=== PATIENT | male | born 1955 | race Hispanic/Latino ===

== ENCOUNTER 2020-02-03 11:09 | Inpatient (IN) | payer MEDICARE ==
[~2020-02-03] VITALS: Ht 180.3 cm; Wt 100.0 kg
[~2020-02-03 11:09] MED LIST: ATOR20TA65 PO; DAPA5TAB PO; FENO145T26 PO; INSU10VI2 SQ; LOSA100T58 PO; MONT10TA26 PO; SITA1TAB6 PO; TAMS-1 PO
[2020-02-03] MEDS ORDERED: ALBUTEROL INHALER 90MCG/INH IH ONE (11:36)
[2020-02-03] MEDS ORDERED: DEXAMETHASONE SOD PHOSPHATE 4 MG/ML 1ML VIAL ONE (11:36)
[2020-02-03] MEDS ORDERED: AZITHROMYCIN 500MG+NS 250ML 250 ML IV ONE (11:36)
[2020-02-03 11:44] LABS: ABG BASE EXCESS 2.4 mmol/L (-2.0-3.0); ABG HCO3 25.8 mmol/L (21.0-28.0); ABG OXYGEN SATURATION 92.6 % (95.0-99.0); ABG PCO2 36 mmHg (35-48)
[2020-02-03 11:45] LABS: BASOPHILS % (AUTO) 0.2 % (0.0-5.0); EOSINOPHILS % (AUTO) 0.2 % (0.0-8.0); HEMATOCRIT 39.4 % (42-54); LYMPHOCYTES % (AUTO) 4.7 % (21.0-51.0); MEAN CORPUSCULAR HEMOGLOBIN 28.5 pg (27.0-33.0); MEAN CORPUSCULAR HGB CONC 32.5 g/dL (32.0-36.0); MEAN CORPUSCULAR VOLUME 87.8 fL (79-99); MONOCYTES % (AUTO) 3.6 % (3.0-13.0); NEUTROPHILS % (AUTO) 90.7 % (40.0-77.0); PLATELET COUNT (AUTO) 166 K/uL (130-400); RED BLOOD CELL COUNT(AUTO) 4.49 MIL/uL (4.50-6.20); RED CELL DISTRIBUTION WIDTH 13.6 % (11.0-15.5); WHITE BLOOD COUNT (AUTO) 6.4 K/uL (4.8-10.8)
[2020-02-03] MEDS ORDERED: ENOXAPARIN SODIUM 100 MG/1 ML SQ ONE (11:49)
[2020-02-03] MEDS ORDERED: CEFTRIAXONE SODIUM 1 GM ONE (11:56)
[2020-02-03 12:02] LABS: INR 0.88 (0.85-1.15); PARTIAL THROMBOPLASTIN TIME 30.5 SEC (26.3-35.5); PROTHROMBIN TIME 9.6 SEC (9.6-11.6)
[2020-02-03 12:12] LABS: ALANINE AMINOTRANSFERASE 41 U/L (12-78); ALBUMIN 2.7 g/dL (3.5-5.0); ASPARTATE AMINOTRANSFERASE 50 U/L (10-37); BILIRUBIN,TOTAL 0.9 mg/dL (0.2-1.0); CARBON DIOXIDE 27 mmol/L (21-32); CHLORIDE 101 mmol/L (101-111); CREATINE KINASE, TOTAL 181 U/L (21-232); GLOMERULAR FILTR. RATE CALC 79 mL/min (>60); GLUCOSE,RANDOM 236 mg/dL (70-105); MYOGLOBIN 130 ng/mL (10-92); POTASSIUM 5.4 mmol/L (3.5-5.1); SODIUM SERUM 136 mmol/L (136-145); TOTAL PROTEIN, SERUM 7.3 g/dL (6.0-8.3); TROPONIN I < 0.04 ng/mL (0.00-0.06); UREA NITROGEN, BLOOD 21 mg/dL (7-18)
[2020-02-03 12:36] LABS: APPEARANCE,URINE Clear (CLEAR); BILIRUBIN,URINE Negative (NEGATIVE); COLOR,URINE Yellow (YELLOW); GLUCOSE, URINE (UA) 250 mg/dL (NEGATIVE); KETONES,URINE Trace mg/dL (NEGATIVE); LEUKOCYTE ESTERASE ,URINE Negative (NEGATIVE); NITRATE,URINE Negative (NEGATIVE); OCCULT BLOOD,URINE Negative (NEGATIVE); PROTEIN,URINE POS 1+ mg/dL (NEGATIVE)
[2020-02-03 12:47] LABS: BACTERIA,URINE Rare /HPF (None Seen); MUCUS,URINE Few LPF (None Seen); RBC,URINE 0-1 /HPF (0-1); SQUAMOUS EPITHELIAL CELL,UR Rare /HPF (0-2); WBC,URINE 0-1 /HPF (0-1)
[2020-02-03] MEDS: CEFTRIAXONE SODIUM 1 GM IVP SCH (13:30)
[2020-02-03] MEDS: ERGOCALCIFEROL (VITAMIN D2) 50,000 UNIT CAPSULE PO SCH (13:30)
[2020-02-03] MEDS ORDERED: PHARMACY COMMUNICATION***REMDESIVIR ORDER MISC SCH (13:30)
[2020-02-03] MEDS: INSULIN HUMULIN R 100 UNIT/ML 3ML SQ SCH ×2 (16:30→20:43)
[2020-02-03] MEDS ORDERED: LEVO5TAB13 PO (16:44)
[2020-02-03] MEDS ORDERED: REMDESIVIR (EUA) 520 200 MG in SODIUM CHLORIDE 0.9% 250 ML IV SCH (18:15)
[2020-02-03] MEDS ORDERED: COMPOUND IV REFRIGERATED 1 EACH IVSOLN MISC PRN (18:15)
[2020-02-03 19:00] VITALS: BP 132/66
[2020-02-03] MEDS: FAMOTIDINE 20MG TAB 20 MG TAB PO SCH (19:32)
[2020-02-03] MEDS: DOXYCYCLINE HYCLATE 100 MG TABLET PO SCH (19:32)
[2020-02-04] VITALS: BP 134/72
[2020-02-04] MEDS: CEFTRIAXONE SODIUM 1 GM IVP SCH ×2 (01:34→13:32)
[2020-02-04 04:00] VITALS: BP 123/95
[2020-02-04] MEDS: PHARMACY COMMUNICATION MISC SCH (04:14)
[2020-02-04 05:13] LABS: HEMATOCRIT 32.9 % (42-54); LYMPHOCYTES % (AUTO) 5.3 % (21.0-51.0); MEAN CORPUSCULAR HEMOGLOBIN 28.2 pg (27.0-33.0); MEAN CORPUSCULAR HGB CONC 32.5 g/dL (32.0-36.0); MEAN CORPUSCULAR VOLUME 86.6 fL (79-99); MONOCYTES % (AUTO) 5.1 % (3.0-13.0); NEUTROPHILS % (AUTO) 88.8 % (40.0-77.0); PLATELET COUNT (AUTO) 189 K/uL (130-400); RED CELL DISTRIBUTION WIDTH 13.3 % (11.0-15.5); WHITE BLOOD COUNT (AUTO) 5.3 K/uL (4.8-10.8)
[2020-02-04] MEDS: INSULIN HUMULIN R 100 UNIT/ML 3ML SQ SCH ×4 (05:52→20:34)
[2020-02-04 06:10] LABS: ALANINE AMINOTRANSFERASE 39 U/L (12-78); ALBUMIN 2.3 g/dL (3.5-5.0); ASPARTATE AMINOTRANSFERASE 34 U/L (10-37); BILIRUBIN,TOTAL 0.4 mg/dL (0.2-1.0); CARBON DIOXIDE 25 mmol/L (21-32); CHLORIDE 103 mmol/L (101-111); CREATININE 0.8 mg/dL (0.5-1.5); GLOMERULAR FILTR. RATE CALC 103 mL/min (>60); GLUCOSE,RANDOM 271 mg/dL (70-105); LACTATE DEHYDROGENASE 364 U/L (81-234); SODIUM SERUM 139 mmol/L (136-145); TOTAL PROTEIN, SERUM 6.1 g/dL (6.0-8.3); UREA NITROGEN, BLOOD 20 mg/dL (7-18)
[2020-02-04 07:45] VITALS: BP 105/68
[2020-02-04] MEDS ORDERED: IOHEXOL-350 75 ML VIAL IV ONE (08:16)
[2020-02-04] MEDS: ENOXAPARIN SODIUM 40 MG/0.4 ML SYRINGE SQ SCH (08:45)
--- NOTE | 2020-02-04 08:53 | NUR ---
RAPID COVID TEST COLLECTED AND SENT TO LAB, PERMIT FOR CT OF CHEST PE PROTOCOL SIGNED WELL PERMIT FOR CONVALESCANT PLASMA; I HAVE SPOKEN TO OLENA COELLO TO ENTER THE PT IN THE PLASMA PROGRAM TO SEE IF HE QUALIFIES.
[2020-02-04] MEDS: TAMSULOSIN HCL 0.4 MG CAP.ER.24H PO SCH (10:20)
[2020-02-04] MEDS: FAMOTIDINE 20MG TAB 20 MG TAB PO SCH ×2 (10:20→20:32)
[2020-02-04] MEDS: ATORVASTATIN CALCIUM 20 MG TABLET PO SCH (10:20)
[2020-02-04] MEDS: DEXAMETHASONE 4 MG TAB PO SCH (10:20)
[2020-02-04] MEDS: ASCORBIC ACID 500 MG TAB PO SCH (10:20)
[2020-02-04] MEDS: DOXYCYCLINE HYCLATE 100 MG TABLET PO SCH ×2 (10:20→20:32)
[2020-02-04] MEDS: ZINC SULFATE 220 CAPSULE PO SCH (10:20)
[2020-02-04] MEDS: LOSARTAN 100 MG TABLET PO SCH (10:20)
[2020-02-04 11:00] VITALS: BP 157/82
--- NOTE | 2020-02-04 12:18 | NUR ---
RD NOTIFICATION Pt admitted chest pain, Positive COVID-19 prior to admit. 60gm [address] in [address]. No report of GI distress. BMI 30.6.. BG 176, Alb 2.3. Zinc, Vitamin C supplementation in place. Recommend continue 60gm CCD Recommend 60mL ProMod QD RD to continue to monitor. Please notify as additional nutrition concerns arise. Thank you.
[2020-02-04] MEDS ORDERED: ACETAMINOPHEN 325 MG TAB ONE (13:26)
[2020-02-04] MEDS: ERGOCALCIFEROL (VITAMIN D2) 50,000 UNIT CAPSULE PO SCH (13:32)
[2020-02-04 16:00] VITALS: BP 125/65
[2020-02-04] MEDS ORDERED: SODIUM CHLORIDE 0.9% 250 ML IV ONE (17:02)
[2020-02-04] MEDS: REMDESIVIR (EUA) 520 100 MG in SODIUM CHLORIDE 0.9% 250 ML IV SCH (17:06)
[2020-02-04 19:00] VITALS: BP 107/59
[2020-02-04] MEDS ORDERED: INSULIN HUMULIN R 100 UNIT/ML 3ML ONE (20:27)
[2020-02-04] MEDS ORDERED: DEXTROSE 50%-WATER 50 ML DISP.SYRIN IV PRN (20:30)
[2020-02-04] MEDS ORDERED: GLUCAGON 1MG KIT 1 MG ML IM PRN (20:30)
[2020-02-04] MEDS: HYDROMORPHONE HCL 2 MG/ML VIAL IVP PRN (23:43)
[2020-02-05] VITALS (7 sets, daily range): BP systolic 115–150; BP diastolic 55–87
[2020-02-05] MEDS: CEFTRIAXONE SODIUM 1 GM IVP SCH ×2 (02:07→12:07)
[2020-02-05] MEDS: HYDROMORPHONE HCL 2 MG/ML VIAL IVP PRN ×2 (02:07→04:17)
[2020-02-05 04:12] LABS: EOSINOPHILS % (AUTO) 0.2 % (0.0-8.0); HEMATOCRIT 32.6 % (42-54); LYMPHOCYTES % (AUTO) 7.5 % (21.0-51.0); MEAN CORPUSCULAR HEMOGLOBIN 28.1 pg (27.0-33.0); MEAN CORPUSCULAR HGB CONC 32.5 g/dL (32.0-36.0); MEAN CORPUSCULAR VOLUME 86.5 fL (79-99); MONOCYTES % (AUTO) 4.9 % (3.0-13.0); NEUTROPHILS % (AUTO) 86.3 % (40.0-77.0); PLATELET COUNT (AUTO) 198 K/uL (130-400); RED BLOOD CELL COUNT(AUTO) 3.77 MIL/uL (4.50-6.20); RED CELL DISTRIBUTION WIDTH 13.2 % (11.0-15.5); WHITE BLOOD COUNT (AUTO) 4.7 K/uL (4.8-10.8)
[2020-02-05] MEDS: PHARMACY COMMUNICATION MISC SCH (04:18)
[2020-02-05 04:39] LABS: ALANINE AMINOTRANSFERASE 33 U/L (12-78); ALBUMIN 2.2 g/dL (3.5-5.0); ASPARTATE AMINOTRANSFERASE 20 U/L (10-37); BILIRUBIN,TOTAL 0.3 mg/dL (0.2-1.0); CARBON DIOXIDE 28 mmol/L (21-32); CHLORIDE 104 mmol/L (101-111); CREATININE 0.8 mg/dL (0.5-1.5); GLOMERULAR FILTR. RATE CALC 103 mL/min (>60); GLUCOSE,RANDOM 230 mg/dL (70-105); LACTATE DEHYDROGENASE 290 U/L (81-234); SODIUM SERUM 140 mmol/L (136-145); UREA NITROGEN, BLOOD 24 mg/dL (7-18)
[2020-02-05] MEDS: ASCORBIC ACID 500 MG TAB PO SCH (08:43)
[2020-02-05] MEDS: ENOXAPARIN SODIUM 40 MG/0.4 ML SYRINGE SQ SCH (08:44)
[2020-02-05] MEDS: ZINC SULFATE 220 CAPSULE PO SCH (08:44)
[2020-02-05] MEDS: LOSARTAN 100 MG TABLET PO SCH (08:44)
[2020-02-05] MEDS: ATORVASTATIN CALCIUM 20 MG TABLET PO SCH (08:44)
[2020-02-05] MEDS: DOXYCYCLINE HYCLATE 100 MG TABLET PO SCH ×2 (08:44→21:45)
[2020-02-05] MEDS: DEXAMETHASONE 4 MG TAB PO SCH (08:44)
[2020-02-05] MEDS: FAMOTIDINE 20MG TAB 20 MG TAB PO SCH ×2 (08:44→21:45)
[2020-02-05] MEDS: TAMSULOSIN HCL 0.4 MG CAP.ER.24H PO SCH (08:45)
[2020-02-05] MEDS: INSULIN HUMULIN 70/30 100 UNIT/ML 3ML SQ SCH ×3 (08:48→16:51)
[2020-02-05] MEDS: INSULIN HUMULIN R 100 UNIT/ML 3ML SQ SCH ×4 (08:48→21:45)
--- NOTE | 2020-02-05 11:58 | NUR ---
DC PLAN CALLED DAUGHTER ON FACE SHEET SAID NOT AVAILABLE. Addendum: 02/05/20 at 1200 by KRISTIAN MORALES RN CM Amended: Links added.
[2020-02-05] MEDS: ERGOCALCIFEROL (VITAMIN D2) 50,000 UNIT CAPSULE PO SCH (12:10)
--- NOTE | 2020-02-05 12:40 | NUR ---
DCP CM unable to meet with pt, called daughter on facesheet, spoke to Charisma De La Paz , discussed dc plans. Pt is independent prior to admission, lives at home alone, daughter lives 30minutes from pt. Denies any equipments/services. Pt has [address] in front of his house. Feels safe to go back home, daughter able to assist with transportation and needs as necessary. DC plan to home once stable. CM to cont to follow up. Addendum: 02/05/20 at 1242 by HARITHA WOOTEN LVN CM Amended: Links added.
[2020-02-05] MEDS: REMDESIVIR (EUA) 520 100 MG in SODIUM CHLORIDE 0.9% 250 ML IV SCH (17:43)
--- NOTE | 2020-02-05 23:51 | NUR ---
Patient blood sugar is 439. 20 units of insulin given and hospitalist informed as ordered. First unit of FFP started per protocol. No transfusion reaction observed. Patient is in stable condition. Will continue to monitor.
[2020-02-06] MEDS ORDERED: INSULIN GLARGINE 100 UNITS/ML 10 ML VIAL SQ SCH
[2020-02-06] MEDS: CEFTRIAXONE SODIUM 1 GM IVP SCH ×2 (02:12→11:36)
--- NOTE | 2020-02-06 03:28 | NUR ---
Second unit of FFP completed, with pt in stable condition. No s/s of transfusion reaction observed. Patient is now resting comfortably
[2020-02-06 03:48] VITALS: BP 153/77
[2020-02-06 05:01] LABS: EOSINOPHILS % (AUTO) 0.2 % (0.0-8.0); MEAN CORPUSCULAR HEMOGLOBIN 27.7 pg (27.0-33.0); MEAN CORPUSCULAR HGB CONC 32.2 g/dL (32.0-36.0); MONOCYTES % (AUTO) 4.6 % (3.0-13.0); NEUTROPHILS % (AUTO) 85.8 % (40.0-77.0); PLATELET COUNT (AUTO) 213 K/uL (130-400); RED BLOOD CELL COUNT(AUTO) 3.72 MIL/uL (4.50-6.20); RED CELL DISTRIBUTION WIDTH 13.2 % (11.0-15.5); WHITE BLOOD COUNT (AUTO) 5.9 K/uL (4.8-10.8)
[2020-02-06 05:35] LABS: ALANINE AMINOTRANSFERASE 47 U/L (12-78); ALBUMIN 2.4 g/dL (3.5-5.0); ASPARTATE AMINOTRANSFERASE 31 U/L (10-37); BILIRUBIN,TOTAL 0.3 mg/dL (0.2-1.0); CARBON DIOXIDE 29 mmol/L (21-32); CHLORIDE 106 mmol/L (101-111); CREATININE 0.8 mg/dL (0.5-1.5); GLOMERULAR FILTR. RATE CALC 103 mL/min (>60); GLUCOSE,RANDOM 149 mg/dL (70-105); LACTATE DEHYDROGENASE 295 U/L (81-234); POTASSIUM 3.8 mmol/L (3.5-5.1); SODIUM SERUM 143 mmol/L (136-145); TOTAL PROTEIN, SERUM 6.4 g/dL (6.0-8.3); UREA NITROGEN, BLOOD 24 mg/dL (7-18)
[2020-02-06] MEDS: PHARMACY COMMUNICATION MISC SCH (06:00)
[2020-02-06] MEDS: INSULIN HUMULIN R 100 UNIT/ML 3ML SQ SCH ×5 (07:23→20:35)
[2020-02-06] MEDS: ASCORBIC ACID 500 MG TAB PO SCH (08:00)
[2020-02-06] MEDS: INSULIN HUMULIN 70/30 100 UNIT/ML 3ML SQ SCH ×2 (08:00→11:47)
[2020-02-06] MEDS: ZINC SULFATE 220 CAPSULE PO SCH (08:01)
[2020-02-06] MEDS: FAMOTIDINE 20MG TAB 20 MG TAB PO SCH ×2 (08:01→20:33)
[2020-02-06] MEDS: DOXYCYCLINE HYCLATE 100 MG TABLET PO SCH ×2 (08:01→20:33)
[2020-02-06] MEDS: LOSARTAN 100 MG TABLET PO SCH (08:02)
[2020-02-06] MEDS: DEXAMETHASONE SOD PHOSPHATE 4 MG/ML 1ML VIAL IV SCH (08:02)
[2020-02-06] MEDS: ATORVASTATIN CALCIUM 20 MG TABLET PO SCH (08:02)
[2020-02-06] MEDS: TAMSULOSIN HCL 0.4 MG CAP.ER.24H PO SCH (08:02)
[2020-02-06] MEDS: ENOXAPARIN SODIUM 40 MG/0.4 ML SYRINGE SQ SCH (08:03)
[2020-02-06 08:41] VITALS: BP 150/87
[2020-02-06 11:49] VITALS: BP 159/78
[2020-02-06] MEDS ORDERED: INSULIN HUMULIN R 100 UNIT/ML 3ML SQ SCH ×2 (12:00)
[2020-02-06 16:30] VITALS: BP 122/71
[2020-02-06] MEDS: REMDESIVIR (EUA) 520 100 MG in SODIUM CHLORIDE 0.9% 250 ML IV SCH (18:34)
[2020-02-06] MEDS: INSULIN GLARGINE 100 UNITS/ML 10 ML VIAL SQ SCH (20:34)
[2020-02-06 20:39] VITALS: BP 173/77
[2020-02-06 23:47] VITALS: BP 170/85
[2020-02-07] MEDS: CEFTRIAXONE SODIUM 1 GM IVP SCH ×2 (01:03→14:39)
[2020-02-07 04:02] VITALS: BP 141/76
[2020-02-07 05:37] LABS: BASOPHILS % (AUTO) 0.3 % (0.0-5.0); EOSINOPHILS % (AUTO) 0.4 % (0.0-8.0); HEMATOCRIT 33.2 % (42-54); MEAN CORPUSCULAR HEMOGLOBIN 27.8 pg (27.0-33.0); MEAN CORPUSCULAR HGB CONC 32.5 g/dL (32.0-36.0); MEAN CORPUSCULAR VOLUME 85.6 fL (79-99); NEUTROPHILS % (AUTO) 83.8 % (40.0-77.0); PLATELET COUNT (AUTO) 238 K/uL (130-400); RED BLOOD CELL COUNT(AUTO) 3.88 MIL/uL (4.50-6.20); RED CELL DISTRIBUTION WIDTH 13.1 % (11.0-15.5); WHITE BLOOD COUNT (AUTO) 7.7 K/uL (4.8-10.8)
[2020-02-07] MEDS: PHARMACY COMMUNICATION MISC SCH (06:00)
[2020-02-07 06:01] LABS: ALANINE AMINOTRANSFERASE 53 U/L (12-78); ALBUMIN 2.4 g/dL (3.5-5.0); ASPARTATE AMINOTRANSFERASE 33 U/L (10-37); BILIRUBIN,TOTAL 0.3 mg/dL (0.2-1.0); CARBON DIOXIDE 27 mmol/L (21-32); CHLORIDE 104 mmol/L (101-111); CREATININE 0.7 mg/dL (0.5-1.5); GLOMERULAR FILTR. RATE CALC 120 mL/min (>60); GLUCOSE,RANDOM 246 mg/dL (70-105); LACTATE DEHYDROGENASE 310 U/L (81-234); POTASSIUM 3.6 mmol/L (3.5-5.1); SODIUM SERUM 141 mmol/L (136-145); TOTAL PROTEIN, SERUM 6.1 g/dL (6.0-8.3); UREA NITROGEN, BLOOD 22 mg/dL (7-18)
[2020-02-07] MEDS: INSULIN HUMULIN R 100 UNIT/ML 3ML SQ SCH ×7 (06:15→21:50)
[2020-02-07] MEDS: ENOXAPARIN SODIUM 40 MG/0.4 ML SYRINGE SQ SCH (08:20)
[2020-02-07] MEDS: ZINC SULFATE 220 CAPSULE PO SCH (08:20)
[2020-02-07] MEDS: DOXYCYCLINE HYCLATE 100 MG TABLET PO SCH ×2 (08:20→20:57)
[2020-02-07] MEDS: ATORVASTATIN CALCIUM 20 MG TABLET PO SCH (08:20)
[2020-02-07] MEDS: DEXAMETHASONE SOD PHOSPHATE 4 MG/ML 1ML VIAL IV SCH (08:20)
[2020-02-07] MEDS: FAMOTIDINE 20MG TAB 20 MG TAB PO SCH ×2 (08:20→20:57)
[2020-02-07] MEDS: TAMSULOSIN HCL 0.4 MG CAP.ER.24H PO SCH (08:20)
[2020-02-07] MEDS: LOSARTAN 100 MG TABLET PO SCH (08:20)
[2020-02-07] MEDS: ASCORBIC ACID 500 MG TAB PO SCH (08:20)
[2020-02-07 09:11] VITALS: BP 150/68
[2020-02-07 11:47] VITALS: BP 123/64
[2020-02-07 16:26] VITALS: BP 110/80
[2020-02-07] MEDS: REMDESIVIR (EUA) 520 100 MG in SODIUM CHLORIDE 0.9% 250 ML IV SCH (17:07)
[2020-02-07 19:00] VITALS: BP 142/69
[2020-02-07] MEDS: INSULIN GLARGINE 100 UNITS/ML 10 ML VIAL SQ SCH (21:50)
[2020-02-07 23:50] VITALS: BP 168/98
[2020-02-08 00:40] VITALS: BP 166/95
[2020-02-08] MEDS: CEFTRIAXONE SODIUM 1 GM IVP SCH ×2 (01:27→12:49)
[2020-02-08] MEDS ORDERED: HYDRALAZINE HCL 20 MG/ML VIAL IV PRN (01:30)
[2020-02-08 03:47] VITALS: BP 147/73
[2020-02-08 06:24] LABS: BASOPHILS % (AUTO) 0.4 % (0.0-5.0); EOSINOPHILS % (AUTO) 0.4 % (0.0-8.0); HEMATOCRIT 35.5 % (42-54); LYMPHOCYTES % (AUTO) 4.9 % (21.0-51.0); MEAN CORPUSCULAR HEMOGLOBIN 28.4 pg (27.0-33.0); MEAN CORPUSCULAR HGB CONC 33.2 g/dL (32.0-36.0); MEAN CORPUSCULAR VOLUME 85.5 fL (79-99); NEUTROPHILS % (AUTO) 84.7 % (40.0-77.0); PLATELET COUNT (AUTO) 244 K/uL (130-400); RED BLOOD CELL COUNT(AUTO) 4.15 MIL/uL (4.50-6.20); RED CELL DISTRIBUTION WIDTH 13.1 % (11.0-15.5); WHITE BLOOD COUNT (AUTO) 11.4 K/uL (4.8-10.8)
[2020-02-08] MEDS: INSULIN HUMULIN R 100 UNIT/ML 3ML SQ SCH ×7 (06:31→21:23)
[2020-02-08 06:52] LABS: ALANINE AMINOTRANSFERASE 49 U/L (12-78); ALBUMIN 2.5 g/dL (3.5-5.0); ASPARTATE AMINOTRANSFERASE 26 U/L (10-37); BILIRUBIN,TOTAL 0.4 mg/dL (0.2-1.0); CARBON DIOXIDE 30 mmol/L (21-32); CHLORIDE 108 mmol/L (101-111); GLOMERULAR FILTR. RATE CALC 79 mL/min (>60); GLUCOSE,RANDOM 291 mg/dL (70-105); LACTATE DEHYDROGENASE 299 U/L (81-234); POTASSIUM 4.1 mmol/L (3.5-5.1); SODIUM SERUM 144 mmol/L (136-145); TOTAL PROTEIN, SERUM 6.2 g/dL (6.0-8.3); UREA NITROGEN, BLOOD 23 mg/dL (7-18)
[2020-02-08 07:25] VITALS: BP 158/79
[2020-02-08 10:30] VITALS: BP 128/67
[2020-02-08] MEDS: DOXYCYCLINE HYCLATE 100 MG TABLET PO SCH ×2 (10:48→21:06)
[2020-02-08] MEDS: FAMOTIDINE 20MG TAB 20 MG TAB PO SCH ×2 (10:48→21:14)
[2020-02-08] MEDS: ZINC SULFATE 220 CAPSULE PO SCH (10:49)
[2020-02-08] MEDS: ASCORBIC ACID 500 MG TAB PO SCH (10:49)
[2020-02-08] MEDS: ATORVASTATIN CALCIUM 20 MG TABLET PO SCH (10:49)
[2020-02-08] MEDS: TAMSULOSIN HCL 0.4 MG CAP.ER.24H PO SCH (10:49)
[2020-02-08] MEDS: LOSARTAN 100 MG TABLET PO SCH (10:49)
[2020-02-08] MEDS: DEXAMETHASONE SOD PHOSPHATE 4 MG/ML 1ML VIAL IV SCH (10:50)
[2020-02-08] MEDS: ENOXAPARIN SODIUM 40 MG/0.4 ML SYRINGE SQ SCH (10:50)
[2020-02-08 15:54] VITALS: BP 149/78
[2020-02-08 16:35] LABS: ABG BASE EXCESS -1.3 mmol/L (-2.0-3.0); ABG HCO3 21.6 mmol/L (21.0-28.0); ABG OXYGEN SATURATION 87.1 % (95.0-99.0); ABG PCO2 31 mmHg (35-48)
--- NOTE | 2020-02-08 17:08 | NUR ---
CM NOTE/[facility]XYGEN NEW ORDER FOR HOME OXYGEN REFERRAL. PATIENT QUALIFIED WITH OXYGEN SATURATION OF 84%, SEE RT NOTES. DAUGHTER, SADI CERNA, CALLED AND MADE AWARE OF REFERRAL WELL LENDING OUR CONCENTRATOR AND PORTABLE TANK UNTIL DME PROCESS HOME OXYGEN REFERRAL. PER DAUGHTER, OK WITH ANY DME IN NETWORK. [facility] FAXED REFERRAL. PER MD, WILL DC HOME TOMORROW 02/09/20 WITH ELIQUIS AND STEROID RX. DAUGHTER, SADI CERNA, INFORMED. PRIMARY NURSE, JORGE A RN, MADE AWARE.
[2020-02-08 19:00] VITALS: BP 169/74
[2020-02-08] MEDS: INSULIN GLARGINE 100 UNITS/ML 10 ML VIAL SQ SCH (21:24)
[2020-02-09] VITALS: BP 167/75
[2020-02-09] MEDS: CEFTRIAXONE SODIUM 1 GM IVP SCH ×2 (01:54→12:26)
[2020-02-09 04:00] VITALS: BP 140/72
[2020-02-09 04:03] LABS: BASOPHILS % (AUTO) 0.1 % (0.0-5.0); EOSINOPHILS % (AUTO) 0.4 % (0.0-8.0); HEMATOCRIT 33.5 % (42-54); LYMPHOCYTES % (AUTO) 5.1 % (21.0-51.0); MEAN CORPUSCULAR HGB CONC 33.1 g/dL (32.0-36.0); MEAN CORPUSCULAR VOLUME 84.6 fL (79-99); MONOCYTES % (AUTO) 3.7 % (3.0-13.0); NEUTROPHILS % (AUTO) 86.4 % (40.0-77.0); PLATELET COUNT (AUTO) 228 K/uL (130-400); RED BLOOD CELL COUNT(AUTO) 3.96 MIL/uL (4.50-6.20); RED CELL DISTRIBUTION WIDTH 13.2 % (11.0-15.5)
[2020-02-09 04:14] LABS: ALANINE AMINOTRANSFERASE 57 U/L (12-78); ALBUMIN 2.4 g/dL (3.5-5.0); ASPARTATE AMINOTRANSFERASE 30 U/L (10-37); BILIRUBIN,TOTAL 0.5 mg/dL (0.2-1.0); CARBON DIOXIDE 28 mmol/L (21-32); CHLORIDE 106 mmol/L (101-111); CREATININE 0.8 mg/dL (0.5-1.5); GLOMERULAR FILTR. RATE CALC 103 mL/min (>60); GLUCOSE,RANDOM 237 mg/dL (70-105); LACTATE DEHYDROGENASE 251 U/L (81-234); POTASSIUM 3.6 mmol/L (3.5-5.1); SODIUM SERUM 141 mmol/L (136-145); UREA NITROGEN, BLOOD 22 mg/dL (7-18)
[2020-02-09] MEDS: INSULIN HUMULIN R 100 UNIT/ML 3ML SQ SCH ×4 (07:10→12:25)
[2020-02-09 07:32] VITALS: BP 109/70
[2020-02-09] MEDS: LOSARTAN 100 MG TABLET PO SCH (10:11)
[2020-02-09] MEDS: ATORVASTATIN CALCIUM 20 MG TABLET PO SCH (10:11)
[2020-02-09] MEDS: DOXYCYCLINE HYCLATE 100 MG TABLET PO SCH (10:11)
[2020-02-09] MEDS: FAMOTIDINE 20MG TAB 20 MG TAB PO SCH (10:11)
[2020-02-09] MEDS: ZINC SULFATE 220 CAPSULE PO SCH (10:11)
[2020-02-09] MEDS: ASCORBIC ACID 500 MG TAB PO SCH (10:11)
[2020-02-09] MEDS: TAMSULOSIN HCL 0.4 MG CAP.ER.24H PO SCH (10:11)
[2020-02-09] MEDS: DEXAMETHASONE SOD PHOSPHATE 4 MG/ML 1ML VIAL IV SCH (10:12)
[2020-02-09] MEDS: ENOXAPARIN SODIUM 40 MG/0.4 ML SYRINGE SQ SCH (10:13)
[2020-02-09] MEDS ORDERED: DEXA6TAB PO (10:22)
[2020-02-09] MEDS ORDERED: AZIT500T2 PO (10:22)
[2020-02-09 10:45] VITALS: BP 148/79
--- NOTE | 2020-02-09 13:49 | NUR ---
CM NOTE/[facility] 02 CONCENTRATOR AND TANK PATIENT TO DC HOME TODAY, PENDING [facility]IENT PROCESS AND DELIVERY OF OXYGEN CONCENTRATOR AND TANK. HOSPITAL TO LEND A OXYGEN CONCENTRATOR AND PORTABLE O2 TANK FOR HOME USE AND TO RETURN WHEN NOT IN USE, PORTABLE O2 TANK TO BE BROUGHT BACK WHEN PATIENT GETS DROPPED OFF AT HOME. JORGE A JONES, MADE AWARE OF CONCENTRATOR AND TANK IN NURSING POD TO GIVE TO PATIENT, VERBALIZED UNDERSTANDING. NURSE TO INSTRUCT PATIENT ON CONCENTRATOR USE.
--- NOTE | 2020-02-09 16:20 | NUR ---
Discharge Patient discharged with home 02 provided by his insurance [id number], he is [id number] and in no distress, Tele box removed and INT removed.
== END 2020-02-09 16:36 | disposition home or self-care (01) | DRG 177 ==
LOC: EDH 11:09 → EDHIP 13:24 → 3AH 15:39
PROVIDERS: ADMIT Internal Medicine; ATTEND Internal Medicine
PROC: XW13325 Transfusion of Convalescent Plasma (Nonautologous) into Peripheral Vein, Percutaneous Approach, New Technology Group 5 (ICD-10-PCS; principal; 2020-02-03)
PROC: XW033E5 Introduction of Remdesivir Anti-infective into Peripheral Vein, Percutaneous Approach, New Technology Group 5 (ICD-10-PCS; 2020-02-03)
DX: U07.1 COVID-19 (principal); J12.89 Other viral pneumonia; J96.01 Acute respiratory failure with hypoxia; E87.3 Alkalosis; E11.9 Type 2 diabetes mellitus without complications; D72.810 Lymphocytopenia; E78.5 Hyperlipidemia, unspecified; R07.9 Chest pain, unspecified; E87.5 Hyperkalemia; I10 Essential (primary) hypertension; N40.0 Benign prostatic hyperplasia without lower urinary tract symptoms; Z79.4 Long term (current) use of insulin; Z90.49 Acquired absence of other specified parts of digestive tract; Z87.01 Personal history of pneumonia (recurrent); Z83.3 Family history of diabetes mellitus; Z82.49 Family history of ischemic heart disease and other diseases of the circulatory system
CPT/HCPCS: 36415; 36430; 36600; 71045; 71275; 80053; 81001; 82435; 82550; 82728; 82803; 82947; 82948; 83605; 83615; 83874; 84132; 84145; 84295; 84484; 85018; 85025; 85378; 85610; 85730; 86140; 86850; 86900; 86901; 86927; 87040; 87088; 87426; 93005; 94760; G0378; J0360; J0456; J0696; J1100; J1170; J1650; J1815; J7050; J8540; Q9967; U0003

== ENCOUNTER 2020-11-01 18:22 | Emergency (ER) | payer MEDICARE ==
[~2020-11-01 18:22] MED LIST changes: +AZIT500T2 PO; -DAPA5TAB PO; -FENO145T26 PO; +LEVO5TAB13 PO; -MONT10TA26 PO; +MONT10TA32 PO
[2020-11-01] MEDS ORDERED: CEFEPIME HCL 1 GM VIAL ONE ×2 (21:40→21:48)
[2020-11-01] MEDS ORDERED: VANCOMYCIN 1GM+NS 250ML 250 ML IV ONE (21:40)
[2020-11-01] MEDS ORDERED: SODIUM CHLORIDE 0.9% 250 ML IV ONE (21:41)
[2020-11-01] MEDS ORDERED: SODIUM CHLORIDE 0.9% 50 ML IV ONE (21:41)
[2020-11-01 21:48] LABS: BASOPHILS % (AUTO) 0.7 % (0.0-5.0); EOSINOPHILS % (AUTO) 3.5 % (0.0-8.0); LYMPHOCYTES % (AUTO) 10.3 % (21.0-51.0); MEAN CORPUSCULAR HEMOGLOBIN 28.6 pg (27.0-33.0); MEAN CORPUSCULAR HGB CONC 33.2 g/dL (32.0-36.0); MEAN CORPUSCULAR VOLUME 86.4 fL (79-99); MONOCYTES % (AUTO) 7.5 % (3.0-13.0); NEUTROPHILS % (AUTO) 77.1 % (40.0-77.0); PLATELET COUNT (AUTO) 133 K/uL (130-400); RED CELL DISTRIBUTION WIDTH 14.9 % (11.0-15.5); WHITE BLOOD COUNT (AUTO) 5.8 K/uL (4.8-10.8)
[2020-11-01 22:01] LABS: PROTHROMBIN TIME 10.9 SEC (9.6-11.6)
[2020-11-01 22:03] LABS: PARTIAL THROMBOPLASTIN TIME 26.2 SEC (26.3-35.5)
[2020-11-01 22:04] LABS: CARBON DIOXIDE 26 mmol/L (21-32); CHLORIDE 104 mmol/L (101-111); CREATININE 1.1 mg/dL (0.5-1.5); GLOMERULAR FILTR. RATE CALC 71 mL/min (>60); GLUCOSE,RANDOM 216 mg/dL (70-105); POTASSIUM 3.7 mmol/L (3.5-5.1); SODIUM SERUM 140 mmol/L (136-145); UREA NITROGEN, BLOOD 24 mg/dL (7-18)
[2020-11-01 22:05] LABS: ALANINE AMINOTRANSFERASE 46 U/L (12-78); ALBUMIN 3.7 g/dL (3.5-5.0); ASPARTATE AMINOTRANSFERASE 28 U/L (10-37); BILIRUBIN,TOTAL 0.3 mg/dL (0.2-1.0); TOTAL PROTEIN, SERUM 6.7 g/dL (6.0-8.3)
[2020-11-01 22:05] LABS: APPEARANCE,URINE Clear (CLEAR); BILIRUBIN,URINE Negative (NEGATIVE); COLOR,URINE Yellow (YELLOW); GLUCOSE, URINE (UA) >=1000 mg/dL (NEGATIVE); KETONES,URINE Negative (NEGATIVE); LEUKOCYTE ESTERASE ,URINE Negative (NEGATIVE); NITRATE,URINE Negative (NEGATIVE); OCCULT BLOOD,URINE Negative (NEGATIVE); PROTEIN,URINE Negative (NEGATIVE); UROBILINOGEN,URINE 0.2 mg/dL (0.2-1.0)
[2020-11-01 22:06] LABS: CRP QUANTITATIVE < 2.00 mg/L (0.00-9.0)
[2020-11-01 22:12] LABS: BACTERIA,URINE Rare /HPF (None Seen); RBC,URINE None Seen /HPF (0-1); SQUAMOUS EPITHELIAL CELL,UR 0-2 /HPF (0-2); WBC,URINE 0-1 /HPF (0-1)
[2020-11-01] MEDS ORDERED: LIDOCAINE HCL 1% 20 ML VIAL ONE (22:50)
[2020-11-01] MEDS ORDERED: CEFAZOLIN SODIUM 1 GM VIAL ONE (22:58)
[2020-11-01] MEDS ORDERED: TETANUS/DIPHTHERIA TOXOID [ADULT] 0.5 ML VIAL IM ONE (22:59)
== END 2020-11-02 00:49 | disposition home or self-care (01) ==
LOC: EDH 18:22
DX: S90.452A Superficial foreign body, left great toe, initial encounter (principal); E11.9 Type 2 diabetes mellitus without complications; Z98.890 Other specified postprocedural states; W45.8XXA Other foreign body or object entering through skin, initial encounter; Y93.89 Activity, other specified; Y92.89 Other specified places as the place of occurrence of the external cause; Y99.8 Other external cause status
CPT/HCPCS: 10120; 71045; 36415; 73630; 80053; 81001; 84484; 85025; 85610; 85730; 86140; 87040 ×2; 93005; 96365; 96366; 96367; 99285; J0692 ×2; J3370; J7050; 90714; J0690

== ENCOUNTER 2024-10-28 19:07 | Emergency (ER) | payer MEDICARE ==
[~2024-10-28] VITALS: Ht 182.9 cm; Wt 104.3 kg
[~2024-10-28 19:07] MED LIST changes: +IBUP-2070 PO; -LOSA100T58 PO; +LOSA100T59 PO; +MONT-39 PO; -MONT10TA32 PO; -TAMS-1 PO; +TAMS-55 PO
--- NOTE | 2024-10-28 20:12 | HMCIMG ---
FOOT COMP 3+VWS LT HISTORY: Fracture COMPARISON: None TECHNIQUE: 3 images of the left foot were obtained. FINDINGS: There is no acute displaced fracture or dislocation. 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 Deformity is seen of the first proximal phalanx with vertical fracture and articular extension. Tiny calcaneal spur is seen. Degenerative changes are seen. IMPRESSION: 1. Findings as described above.
--- NOTE | 2024-10-28 20:44 | ERN ---
General Chief Complaint: Toe Pain/Injury Stated Complaint: KICKED TOOL AND HURT LEFT FOOT Time Seen by MD: 19:08 Time Seen by Midlevel: 19:08 Source: patient History of Present Illness Initial Comments 69-year-old male with a past medical history of type 2 diabetes presenting to the emergency department with swelling to his left great toe. The patient sta douglas he accidentally kicked a metal tool several days ago. Today he noticed an increase in swelling to the area. He also noticed a hematoma to the superior aspect of the left great toe. His family was concerned that this may need to be drained so they brought him to the emergency department for further evaluation. Allergies: Coded Allergies: No Known Drug Allergies (Verified Allergy, Unknown, 12/10/19) Home Meds Active Scripts Ibuprofen (Ibuprofen) 600 Mg Tablet, 600 MG PO Q6H PRN for PAIN, #15 TAB Prov:SILVIA VALENZUELA KILN PULLER 08/23/21 Azithromycin (Zithromax Tri-José) 500 Mg Tablet, 500 MG PO AD for 5 Days, #1 TAB 0 Refills Prov:KLARISSA CLEMONS ACNP 02/09/20 Reported Medications Levocetirizine Dihydrochloride (Levocetirizine Dihydrochloride) 5 Mg Tablet, 5 MG PO HS, TAB 02/03/20 Atorvastatin Calcium (Atorvastatin Calcium) 20 Mg Tablet, 20 MG PO HS, TAB 12/10/19 Montelukast Sodium (Montelukast Sodium) 10 Mg Tablet, 10 MG PO HS, TAB 12/10/19 Losartan Potassium (Losartan Potassium) 100 Mg Tablet, 100 MG PO AM, TAB 12/10/19 Tamsulosin HCl (Flomax) 0.4 Mg Cap.er.24h, 0.4 MG PO AM, CAPSULE.DR 12/10/19 Sitagliptin Phos/Metformin HCl (Janumet 50-1,000 mg Tablet) 1 Each Tablet, 1 EACH PO BID, TAB 12/10/19 Insulin NPL/Insulin Lispro (Humalog Mix 50-50 Vial) 100 Unit/1 Ml Vial, 70 UNITS SQ TIDMEALS, VIAL 12/10/19 Past Medical History Past Medical History: Diabetes-Type II, Hypertension Past Surgical History: None Surgical History Other: SHOULDER - RT, CATARACT ROS Dictation CONSTITUTIONAL: Negative except for HPI HEAD/FACE: Negative except for HPI EENT: Negative except for HPI RESPIRATORY: Negative except for HPI GASTROINTESTINAL/ABDOMINAL: Negative except for HPI GENITOURINARY: Negative except for HPI MUSCULOSKELETAL: Negative except for HPI INTEGUMENTARY: Negative except for HPI NEUROLOGICAL/PSYCH: Negative except for HPI HEMATOLOGIC/LYMPHATIC: Negative except for HPI All Systems Negative, Except as noted above. 13 point review of systems assessed and all negative except for above. Physical Exam Physical Exam Dictation PHYSICAL EXAM: GENERAL: alert,, awake oriented x 3 HEENT: EOMI, Sclera non icteric, moist mucosa NECK: Supple, no JVD, trachea midline LUNGS: Clear breath sounds bilaterally. No wheezes HEART: Regular rate and rhythm. Normal S1 and S2, without murmurs ABD: Abdomen soft, nontender. Bowel sounds present EXT: No clubbing or cyanosis, there is a hematoma to the superior aspect of the left foot between the 1st and 2nd digit, no surrounding erythema or induration is noted NEURO: Alert and oriented to person, follows commands MDM MDM: 69-year-old male presenting to the ER with swelling and a hematoma to his left great toe after kicking a metal tool. X-ray does not show any acute fracture. There is a hematoma bubble on exam. I did offer to drainage however the patient states he was like to hold off as this could increase his risk of infection. We will discharged home with strict return precautions. Differential diagnosis: Fracture, contusion, hematoma There are no social concerns with this patient. Prescription drug management Prescriptions will include: None Medical management and examination interpretation discussions were had by me with other qualified healthcare professionals as indicated for the patient's care. ED Course Orders Procedure Category Date Status Time Foot Comp 3+Vws Lt RAD 10/28/24 Resulted 19:30 Vital Signs Date Time Temp Pulse Resp B/P (MAP) Pulse Ox O2 Delivery O2 Flow Rate FiO2 10/28/24 19:42 97.5 70 20 165/91 97 Room Air* 0 21 10/28/24 19:28 97.5 70 20 165/91 97 Room Air DX & DISP Disposition: Discharge Departure Impression: Primary Impression: Contusion of great toe, left Additional Impression: Hematoma of left great toe Condition: Stable Additional Instructions: Your x-ray does not show any evidence of an acute fracture or dislocation. There is a hematoma to the superior aspect of your left foot. I did offer to drain it however this could put you at an increased risk for an infection given your history of type 2 diabetes. The hematoma should progressively get smaller as your body absorbs the blood. If the hematoma bursts please keep area clean and dry. Avoid any fishing until it fully heals. If you develop any signs of infection please report to the ER for further evaluation. Referrals: MAHSA ENRIQUEZ (PCP) Time of Disposition: 20:40 I have reviewed the case, and I agree with, Diagnosis and Plan I performed the substantive portion of the visit. I have reviewed and personally made and approve the management plan that is documented in the note by myself or the JOY. I acknowledge for responsibility for the patient's management plan. PAKO RIVERA Oct 28, 2024 20:44
[2024-10-28 20:47] VITALS: BP 142/88; PULSE 74; RESP 20; TEMP 97.5; O2SAT 97
== END 2024-10-28 20:51 | disposition home or self-care (01) ==
LOC: EDH 19:07
DX: S90.112A Contusion of left great toe without damage to nail, initial encounter (principal); E11.9 Type 2 diabetes mellitus without complications; I10 Essential (primary) hypertension; Z79.84 Long term (current) use of oral hypoglycemic drugs; Z79.899 Other long term (current) drug therapy; Z98.890 Other specified postprocedural states; W22.09XA Striking against other stationary object, initial encounter; Y93.89 Activity, other specified; Y92.89 Other specified places as the place of occurrence of the external cause; Y99.8 Other external cause status
CPT/HCPCS: 73630; 99283